=== PATIENT | male | born 1965 | race Caucasian/White ===

== ENCOUNTER 2023-05-19 22:30 | Emergency (ER) | payer MEDICAID, SELFPAY ==
[2023-05-19 22:30] VITALS: BP 177/131; PULSE 91; RESP 16; TEMP 36.4; O2SAT 99; BMI 28.5
[2023-05-20 00:10] VITALS: BP 217/134; RESP 18; O2SAT 99
[2023-05-20] MEDS: oxyCODONE 5 MG Tablet PO (00:49)
[2023-05-20 00:50] VITALS: BP 188/127; PULSE 80; RESP 16; O2SAT 98
[2023-05-20 01:00] VITALS: BP 182/110
--- NOTE | 2023-05-20 01:05 | EDS_ITS ---
HPI History of Present Illness Chief Complaint: Upper Extremity Injury Informant: patient Narrative Narrative: Patient is a 57-year-old male with no reported medical history (has not followed up with a primary care doctor since his mother who previously would help take care of him) presenting with his nephew for right arm pain. Patient is right-hand dominant. He bowls and pullingly 3 times a week. For the past week he has been having some mild pain of his right bicep area/shoulder. Tonight to start him of bowling he was swinging the ball back and then starting to release it recently felt a pop and had severe pain in his right bicep area. He notes his shoulder pain has been better since however he is having presynaptic and pain in the bicep area. Did not take anything for pain prior to arrival. Denies any associated numbness or tingling. Does have pain with any motion of the arm. Does not have pain with range of motion of the shoulder. Does not see an orthopedist. No other complaints or concerns at this time. PFSH PFSH Home Medications amlodipine 5 mg tablet (Norvasc) 5 mg PO DAILY #30 tabs 05/20/23 [Rx Last Taken Unknown] oxycodone-acetaminophen 5 mg-325 mg tablet (Percocet) 1 tab PO Q6H PRN pain 3 days #12 tabs 05/20/23 [Rx Last Taken Unknown] Allergy/AdvReac Type Severity Reaction Status Date / Time No Known Allergies Allergy Verified 05/20/23 00:12 Social History Smoking Status: Former smoker ROS ROS ED Constitutional Constitutional ED: Denies chills or fever(s) Cardiovascular Cardiovascular: Denies chest pain Respiratory/Chest Respiratory/Chest: Denies cough Gastrointestinal Gastrointestinal: Denies nausea or vomiting Musculoskeletal Musculoskeletal: Reports other Details: right arm pain Integumentary Denies Abrasions or rash Neurologic Neurologic: Denies headache(s), paresthesias or weakness Psychiatric Psychiatric: Denies anxiety Hematologic/Lymphatic Hematologic/Lymphatic: Denies easy bleeding or easy bruising EXAM Physical Exam Const Vital Signs: 05/19/23 22:30 05/20/23 00:10 05/20/23 00:50 Temperature 97.6 F L Temperature Source Temporal Pulse Rate 91 80 Respiratory Rate 16 18 16 Blood Pressure 177/131 H 217/134 H 188/127 H Blood Pressure Mean 146 161 147 Pulse Ox 99 99 98 Oxygen Delivery Method Room Air Room Air Room Air 05/20/23 01:00 Temperature Temperature Source Pulse Rate Respiratory Rate Blood Pressure 182/110 H Blood Pressure Mean 134 Pulse Ox Oxygen Delivery Method Positive well nourished and well developed General Appearance ED: well developed and NAD HEENT Reports moist mucous membranes Eyes PERRL Neck full ROM and supple Neck Narrative: No JVD Chest Wall inspection of chest normal and palpation of chest normal Resp normal respiratory effort and clear to auscultation bilaterally Auscultation: Negative for diminished lung sounds Cardio regular rate, regular rhythm and no murmurs Cardio Narrative: 2+ bilateral radial pulses Extremity full ROM Extremity Narrative: Patient has pain and mild weakness with flexion of the biceps. Tenderness to palpation with slight deformity of the right bicep. Normal strength and sensation with movement of the deltoid. Normal range of motion of the right shoulder, elbow and wrist however movement of the forearm and wrist does cause pain of the bicep area. No pulsatile mass appreciated. Neuro oriented x3, moves all extremities, no focal motor deficits and no sensory deficits noted Sensorium / Orientation: alert Psych mental status grossly normal Skin Lesions: no lesions Rashes: no rashes MDM MDM MDM Narrative Medical decision making narrative: Patient evaluated for pain and a popping sensation of his right bicep area. Suspect bicep tendon rupture/tear. I do not suspect any acute bony abnormality do not think imaging is indicated. Patient is given oxycodone for pain in the ER. Is neuro vascularly intact. Patient's blood pressure does improve but he remains hypertensive in the ER. Pain improved with oxycodone in the ER. Will be discharged home with a course of oxycodone as well as outpatient Ortho follow-up. Is placed in an Benito wrap for his bicep for pain control as well as a sling. Counseled on RICE therapy for this. Counseled that I suspect he has rupture of his biceps muscle he needs further follow-up and evaluation with orthopedics. Patient is noted to be hypertensive in the emergency room. He admits he has not seen a family doctor in quite a long time. He does not seem to have signs or symptoms consistent with hypertensive emergency and I do not think he requires a workup for this however I will start him on 5 mg Norvasc. Instructed on the importance of outpatient PCP follow-up and keeping a blood pressure log/obtaining a home blood pressure cuff. Patient verbalized agreement understanding with this. Discharged home in stable condition. Given return precautions to the ER. Counseled signs of low blood pressure including lighthea dedness, dizziness or feeling like he is going to pass out. Discharge Plan Triage Chief Complaint: Upper Extremity Injury ED Provider: Dulce Maria Aquino Dx/Rx/DC Orders Clinical Impression: Rupture of biceps tendon, Hypertension Instructions: ED Hypertension New Begin Treatment, ED Muscle Strain, Extremity Prescriptions: New amlodipine [Norvasc] 5 mg tablet 5 mg PO DAILY Qty: 30 0RF oxycodone-acetaminophen [Percocet] 5-325 mg tablet 1 tab PO Q6H PRN (Reason: pain) 3 Days Qty: 12 0RF Primary Care Provider: Care Physician,No Primary Referrals: Campos French MD [Med Staff - Active Staff] - As soon as possible Javy Tomlin MD [Med Staff - Active Staff] - As soon as possible Care Physician,No Primary [Primary Care Provider] - Activity Restrictions/Additional Instructions: Based on your physical exam I am concerned that you might have torn or ruptured your bicep muscle. Please follow-up with orthopedics for this. In the meantime wear Benito wrap and sling as needed for comfort. Ice the area. He may also take ibuprofen. You have been prescribed Percocet for breakthrough/severe pain. If your pain is adequately treated with just ibuprofen and Tylenol you do not need to take the Percocet. Your blood pressure was quite elevated in the ER and I am also concerned that you have untreated high blood pressure. You have been prescribed Norvasc (amlodipine 5 mg). I recommend keeping a daily blood pressure log for when you follow-up with your primary care doctor. Disposition Disposition: Home, Self Care Discharge Date/Time: 05/20/23 02:31
[2023-05-20 01:54] VITALS: BP 176/88; PULSE 72; RESP 16
== END 2023-05-20 02:31 | disposition home or self-care (01) ==
PROVIDERS: Emergency Provider Emergency Medicine; Visit Provider Emergency Medicine
DX: S46.211A Strain of muscle, fascia and tendon of other parts of biceps, right arm, initial encounter (principal); I10 Essential (primary) hypertension; Z87.891 Personal history of nicotine dependence; X58.XXXA Exposure to other specified factors, initial encounter
CPT/HCPCS: 99284

== ENCOUNTER → 2023-05-23 | Outpatient (CLI) | payer MEDICAID, SELFPAY ==
--- NOTE | 2023-05-23 15:00 | RAD_ITS ---
INDICATION: SHOULDER PAIN EXAMINATION/TECHNIQUE: X-RAY - RIGHT XR Shoulder Min 2 Views 4 VIEWS COMPARISON: No relevant prior comparison study available FINDINGS: SOFT TISSUES: No soft tissue swelling or gas. No radiopaque foreign body. BONES/JOINTS: No acute fracture or subluxation.. Normal alignment. Preservation of the joint space.. No sclerotic or destructive changes observed. RAD/Shoulder min 2 Views IMPRESSION: No evidence of acute fracture or subluxation. Electronically Signed: Camilo Mei MD at 17:59 EST ,
[2023-05-23 18:21] LABS: Anion Gap 4 (5-15); BUN 12 mg/dL (7-18); BUN/Creat Ratio 10.8 RATIO (10-20); Calcium,Total 9.3 mg/dL (8.5-10.1); Chloride 108 mmol/L (98-107); Cholesterol 195 mg/dL (200); Creatinine, Serum 1.11 mg/dL (0.70-1.30); EST Glomerular Filtration Rate 73 mL/min (>60); Est Glom Filt Rate - Afr Amer 88 mL/min (>60); Glucose 84 mg/dL (74-106); High Density Lipoprotein 34 mg/dL; Potassium 3.3 mmol/L (3.5-5.1); Sodium Level 142 mmol/L (136-145); Triglycerides 232 mg/dL; Very Low Density Lipoprotein 46 mg/dL (5-40)
== END | disposition home or self-care (01) ==
LOC: MTLAB 14:59
PROVIDERS: PCP Family Medicine; Referring Provider Family Medicine; Visit Provider Family Medicine
DX: M25.511 Pain in right shoulder (principal); I10 Essential (primary) hypertension
CPT/HCPCS: 36415; 73030; 80048; 80061